=== PATIENT | female | born 1940 | race Caucasian/White ===

== ENCOUNTER 2017-12-04 17:33 | Emergency (ER) | payer MEDICARE, OTHER ==
[~2017-12-04] VITALS: Ht 152.4 cm; Wt 54.9 kg
[~2017-12-04 17:33] MED LIST: ALLA266C2 TP; ATOR10TA PO; BIMA2.5D5 OP; DORZ10DR OP; LEVO50TA PO; LISI-607 PO
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
--- NOTE | 2017-12-04 17:45 | NUR ---
DR CORBETT AT BS FOR EVAL.
--- NOTE | 2017-12-04 18:32 | NUR ---
WOUND CARE AT BS
[2017-12-04] MEDS ORDERED: LIDOCAINE 1%-EPI 1:100,000 20 ML VIAL TP ONE (19:00)
--- NOTE | 2017-12-04 19:02 | NUR ---
REPORT GIVEN TO EDMUNDO DOMINGO FOR CARYN.
--- NOTE | 2017-12-04 19:06 | NUR ---
REPORT RECEIVED FROM EDMUNDO PHILIP FOR CARYN.
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
--- NOTE | 2017-12-04 19:15 | NUR ---
MD AT BEDSIDE TO SUTURE.
[2017-12-04 20:00] VITALS: BP 151/89
--- NOTE | 2017-12-04 20:00 | NUR ---
Patient discharged to home in stable condition. Written and verbal after care instructions given. Patient verbalizes understanding of instruction. Patient ambulatory with a steady gait.
== END 2017-12-04 20:01 | disposition home or self-care (01) ==
LOC: ER 17:36
DX: S01.01XA Laceration without foreign body of scalp, initial encounter (principal); E78.00 Pure hypercholesterolemia, unspecified; I10 Essential (primary) hypertension; W01.198A Fall on same level from slipping, tripping and stumbling with subsequent striking against other object, initial encounter; Y93.89 Activity, other specified; Y92.89 Other specified places as the place of occurrence of the external cause; Y99.8 Other external cause status
CPT/HCPCS: 12002; 70450; 99284; A4606; A6402; Z7610

== ENCOUNTER 2017-12-14 10:04 | Emergency (ER) | payer OTHER ==
[~2017-12-14] VITALS: Ht 152.4 cm; Wt 54.9 kg
[2017-12-14 10:09] VITALS: BP 152/80
== END 2017-12-14 10:31 | disposition home or self-care (01) ==
LOC: ER 10:05
DX: S01.01XD Laceration without foreign body of scalp, subsequent encounter (principal); E78.00 Pure hypercholesterolemia, unspecified; I10 Essential (primary) hypertension
CPT/HCPCS: 99281; A4606; Z7502; Z7610